=== PATIENT | female | born 1995 | race Caucasian/White ===

== ENCOUNTER 2021-07-25 07:25 | Inpatient (IN) ==
--- NOTE | 2021-07-18 17:19 | History and Physical Report ---
DATE OF ADMISSION: 07/25/2021 ADMIT DIAGNOSES: 1. at 39 and 0/7th weeks. 2. Konstantin breech presentation. HISTORY OF PRESENT ILLNESS: Colin is a 26-year-old white female, 1, para 0 who presents at 39 and 0/7 weeks today for a primary section for breech presentation. The has be en uncomplicated. She declined ECV. There was a left echogenic focus discovered on anatomy ultrasou nd and it appears she declined panorama. There have been no other complications in this . S he has had COVID vaccination. PAST GYNECOLOGIC HISTORY: This is the patient's first . GYNECOLOGIC HISTORY: Noncontributory. ALLERGIES: No known drug allergies. MEDICATIONS: vitamin. PAST MEDICAL HISTORY: As noted above. PAST SURGICAL HISTORY: ACL repair in 2017 and wisdom tooth extraction. SOCIAL HISTORY: She is to Tyron Box and lives with him. She denies tobacco, alcohol or drug us e. FAMILY HISTORY: The patient is adopted and her family history is not well known. PHYSICAL EXAMINATION: GENERAL: This is a well-developed, well-nourished white female in no acute distress. VITAL SIGNS: Blood pressure 112/20. Weight 158 pounds. NECK: Supple, without thyromegaly or lymphadenopathy. CHEST: Clear to auscultation bilaterally. CARDIOVASCULAR: Regular rate and rhythm. ABDOMEN: Gravid, soft and nontender. EXTREMITIES: Benign. LABORATORY DATA: Blood type A positive, antibody negative, rubella immune, RPR nonreactive, hepatiti s B negative, HIV negative. GTT at 16 weeks normal. Chlamydia and gonorrhea normal. She did a 2-ho ur diet for her 28 week glucose test and that was normal as well. ASSESSMENT AND PLAN: Colin is a 26-year-old white female, 1, para 0 who presents at 39 and 0/7 weeks for primary section for konstantin breech presentation. The risks of the pro cedure were discussed with the patient including the risks of anesthesia, bleeding requiring transfus ion, infection, poor wound healing, damage to surrounding structures including bowel, bladder, vessel s, nerves and ureters with need for further surgery, hospitalization or intervention, possible injury to fetus. Discussed the other risks of surgery including the risk of heart attack, blood clot, stro ke, or . Consent was reviewed and signed. Questions were asked and answered. Procedure is percy nned for 07/25. Job ID: [id number]
--- NOTE | 2021-07-21 09:42 | Anesthesiology Consultation ---
Date of Service July 21, 2021 Assessment & Plan (1) Encounter for pre-operative examination: Chart Review Chart Review: entry level buyer initiated Per nursing assessment 07/20/2021, patient denies any recent travel. No known Covid infection in the past 90 days. Patient is vaccinated for Covid. No known Covid positive contacts or Covid related symptoms. Preop Covid testing 07/21/21= will await results History Surgery Operation Date: 07/25/21 09:10 Proposed Procedures p Section(Delivery of Baby throught Abdominal Incision) - Claire Zaragoza MD, FACOG Height/Weight Height: 5 ft 3 in Weight: 71.668 kg Allergies Allergy/AdvReac Type Severity Reaction Status Date / Time cat dander Allergy Severe ITCHY/THROAT Verified 07/20/21 13:40 SWELLING dog dander Allergy Severe ITCHY/THROAT Verified 07/20/21 13:40 SWELLING LEATHER Allergy Mild SKIN RASH Uncoded 07/20/21 13:40 Medications Home Medications Medication Instructions Recorded Confirmed Last Taken prenat.vits,gilbert,rty-gvzy-eszhi 1 tab PO DAILY 12/13/20 07/20/21 05/31/21 21:00 Past Medical History Medical History Heartburn during History of chicken pox as a child Hx of breast lump BENIGN Shingles August 2020 Past Family History Family History Mother Cerebral palsy Other Past medical history not known due to adoption Past Surgical History Surgical History H/O breast biopsy BENIGN Nausea and vomiting after administration of anesthetic agent S/P ACL repair LEFT [place] teeth removed Social History Smoking Status: Never smoker Hx Alcohol Use: No Hx Substance Use: No substance use type: does not use Lab Results Anesthesia Preop Results Results Anesthesia Widget: WBC 9.63 K/uL (4.8-10.8) 06/02/21 Hgb 11.4 g/dL (12.0-16.0) L 06/02/21 Hct 33.9 % (37-47) L 06/02/21 Plt 213 K/uL (130-400) 06/02/21 Na 137 mmol/L (136-145) 06/02/21 K 3.8 mmol/L (3.5-5.1) 06/02/21 Cl 107 mmol/L (98-107) 06/02/21 CO2 23 mmol/L (21-32) 06/02/21 BUN 8 mg/dl (7-18) 06/02/21 Creat 0.43 mg/dl (0.6-1.2) L 06/02/21 Glucose Level 85 mg/dl (70-99) 06/02/21 TSH 1.180 uIu/ml (0.300-4.500) 06/02/21 Testing Electrocardiogram Date: 06/02/21 Findings: + NSR @ (78bpm) Normal EKG per cardio
[~2021-07-25 07:25] MED LIST: CITRIC ACID/SODIUM CITRATE 15 ML UDC PO SCH; LACTATED RINGER'S 1,000 ML IV SCH; ceFAZolin 2,000 MG in SYRINGE 0 ML IV SCH
[2021-07-25] MEDS ORDERED: LACTATED RINGER'S 1,000 ML IV SCH ×2 (08:45→11:00)
--- NOTE | 2021-07-25 09:00 | History & Physical Bridge Note ---
Date of Service July 25, 2021 History & Physical Bridge Note I have examined the patient, reviewed the History & Physical and in the interval since the performance of the History & Physical I have noted the following changes of clinical significance: no changes noted, breech confirmed by ultrasound.
[2021-07-25] MEDS ORDERED: ePHEDrine sulfate 50 MG/ML AMP IV PRN (09:05)
[2021-07-25] MEDS ORDERED: NALOXONE HCL 0.08 MG in SYRINGE 1.8 ML IV PRN (09:05)
[2021-07-25] MEDS ORDERED: NALOXONE HCL 1 MG in SODIUM CHLORIDE 0.9% 1000ML 1,000 ML IV PRN (09:05)
[2021-07-25] MEDS ORDERED: ONDANSETRON INJ 2 MG/ML 2 ML VIAL IV PRN (09:05)
[2021-07-25] MEDS ORDERED: diphenhydrAMINE 50 MG/ML VIAL IV PRN (09:05)
[2021-07-25] MEDS ORDERED: NALOXONE HCL 0.4 MG/1 ML VIAL/CARP IV PRN (09:05)
[2021-07-25] MEDS ORDERED: MoRPHine SULFATE 2 MG/ML CARP IV PRN (09:05)
[2021-07-25] MEDS ORDERED: NALBUPHINE HCL INJ 10 MG/ML AMP IV PRN (09:05)
[2021-07-25] MEDS ORDERED: LACTATED RINGER'S 500 ML IV PRN (09:05)
[2021-07-25] MEDS ORDERED: MoRPHine SULFATE PF 1 MG/ML 10 ML AMP/VIAL INT SPINAL ONE (09:05)
[2021-07-25] MEDS ORDERED: KETOROLAC 30 MG/ML VIAL IV PRN (09:05)
[2021-07-25] MEDS ORDERED: OXYTOCIN 10 UNITS/ML VIAL ONE (09:12)
[2021-07-25] MEDS ORDERED: MoRPHine SULFATE PF 1 MG/ML 10 ML AMP/VIAL ONE (09:12)
[2021-07-25] MEDS ORDERED: fentaNYL citrate 100 MCG/2 ML VIAL ONE (09:12)
[2021-07-25] MEDS ORDERED: DC INTRASPINAL MORPHINE SCH (09:15)
[2021-07-25] MEDS ORDERED: SODIUM CHLORIDE 0.9% 1000ML 1,000 ML IV SCH (09:15)
[2021-07-25] MEDS ORDERED: NO NARCOTICS OR SEDATIVES SCH (09:15)
[2021-07-25 09:18] LABS: Basophils # (auto) 0.03 K/uL (0-0.2); Basophils % (auto) 0.4 %; Eosinophils # (auto) 0.12 K/uL (0-0.5); Eosinophils % (auto) 1.5 %; Hematocrit (blood only) 31.2 % (37-47); Hemoglobin 10.2 g/dL (12.0-16.0); Immature Granulocytes # (auto) 0.05 K/uL (0.00-0.02); Immature Granulocytes % (auto) 0.6 %; Lymphocytes % (auto) 24.6 %; Mean Corpuscular Hemoglobin 27.4 pg (25-34); Mean Corpuscular Hgb Conc 32.7 g/dL (32-36); Mean Corpuscular Volume 83.9 fL (80-100); Mean Platelet Volume 9.3 fL (7.4-10.4); Monocytes # (auto) 0.58 K/uL (0.11-0.59); Monocytes % (auto) 7.1 %; Neutrophils # (auto) 5.36 K/uL (1.4-6.5); Neutrophils % (auto) 65.8 %; Platelet Count 230 K/uL (130-400); RDW Coefficient of Variation 12.9 % (11.5-14.5); RDW Standard Deviation 39.2 fL (36.4-46.3); Red Blood Count 3.72 M/uL (4.2-5.4); White Blood Count 8.14 K/uL (4.8-10.8)
[2021-07-25] MEDS ORDERED: ePHEDrine sulfate 50 MG/ML AMP ONE (10:13)
[2021-07-25] MEDS ORDERED: PHENYLEPHRINE 100MCG/ML 5ML SYR ONE (10:13)
[2021-07-25] MEDS ORDERED: ONDANSETRON INJ 2 MG/ML 2 ML VIAL ONE (10:13)
[2021-07-25] MEDS ORDERED: BENZOCAINE 20% AER SPR 82.5 GM CAN EXT PRN (10:52)
[2021-07-25] MEDS ORDERED: SENNA 8.6 MG TAB PO PRN (10:52)
[2021-07-25] MEDS ORDERED: DIPHTHERIA/TETANUS/PERTUSSIS 0.5 ML SYR/VIAL IM ONE (10:52)
[2021-07-25] MEDS ORDERED: MAGNESIUM HYDROXIDE SUSP 30 ML UDC PO PRN (10:52)
[2021-07-25] MEDS ORDERED: SUPERCREAM 0.870% 15 GM JAR EXT PRN (10:52)
[2021-07-25] MEDS ORDERED: HYDROCORTISONE ACETATE 25 MG SUPP PR PRN (10:52)
--- NOTE | 2021-07-25 10:52 | Operative Report ---
PG Post Operative Report Pre & Post Diagnosis Operation Date: 07/25/21 09:10 Pre-Op Diagnosis: at 39 Weeks;Breech Post-Op Diagnosis: Same;Delivery of a live male child at 1021 ( Main OR 3) I identified the patient and participated in the time-out.: Yes Procedure Operation Date: 07/25/21 09:10 Actual Procedures p primary lower transverse Section(Delivery of Baby throught Abdominal Incision) - Claire Zaragoza MD, FACOG Surgeon Claire Zaragoza MD, FACOG Last Cleaner Chalino Reeves RN, Irene Matamoros, MS2 Estimated Blood Loss 600 Findings Consistent with Post-Op Diagnosis viable male , rsa presentation, nl utx, tubes, ovs bilaterally Fluids 1000 Specimens none Drains lopez Anesthesia Type Spinal Complications none Disposition Accompanied Patient To Recovery: Yes Disposition: L&D Indications [id number] with iup at 39 weeks with breech presentation Description of Procedure The patient was taken to the operating room where she was identified verbally and by bracelet. She was seated on the operating table where a spinal anesthetic was placed by anesthesia. She was then placed in the supine position with a leftward tilt. A Lopez catheter was placed sterilely. the patient was prepped and draped in a normal standard fashion. the anesthetic was tested and found to be adequate. A time-out was held, identifying correct patient, procedure, positioning and preoperative antibiotics. There were no concerns. A Pfannenstiel skin incision was made with a knife and taken down to the underlying layer of fascia with the knife and Bovie electrocautery. Bleeding was attended to with the Bovie. The fascia was incised in the midline with the knife and taken out laterally with scissors. The superior edge of the fascial incision was grasped, elevated and the underlying layer of rectus muscle was taken off bluntly and with scissors. In a similar fashion, the inferior edge of the fascial incision was grasped, elevated and the underlying layer of rectus muscle was taken off bluntly and with scissors. The muscles were bluntly in the midline. The peritoneum was entered bluntly. The incision was then stretched. The bladder blade was placed. The vesicouterine peritoneum was identified, entered with scissors and taken out laterally with scissors. The bladder flap was created digitally A hysterotomy incision was scored with a knife and the incision was stretched superiorly and inferiorly with the tag meter operator's fingers. The operators hand was placed into the incision and the buttocks was delivered atraumatically. Nuchal cord x 1. the rest of the was delivered easily, including the head, with fundal pressure. The nose and mouth were again bulb suctioned. The cord was clamped and cut and the was then handed off to the awaiting headline writer for drying and attenti on. Cord blood and segment were obtained. The placenta was Manually extracted. The uterus was exteriorized and cleared of all clot and debris with moistened laparotomy sponges. The hysterotomy incision was repaired in two layers, the first in a running locked layer, the second in an imbricating layer. Hemostasis was noted to be good. Posterior cul-de-sac was irrigated and cleared of all clot and debris. The hysterotomy incision was again inspected and found to be hemostatic. the uterus was reinteriorized. Hysterotomy incision was again inspected and found to be hemostatic. Rectus mu scles were reapproximated with several interrupted stitches of 0 Vicryl. The fascia was then reapproximated with 0 Vicryl starting at the edges and meeting in the midline. The subcuticular tissues were copiously irrigated and bleeding was attended to with cautery. The skin was then closed with 4-0 Vicryl in a subcuticular fashion. All sponge, lap and needle counts correct x 2. Patient taken to the recovery room in stable condition. I attest to the content of the Intraoperative Record and any orders documented therein. Any exceptions are noted below. OB Procedure Charges 41720
[2021-07-25] MEDS: OXYTOCIN 20 UNITS in LACTATED RINGER'S 1,000 ML IV SCH ×2 (12:43→20:33)
[2021-07-25] MEDS: DOCUSATE SODIUM 100 MG CAP PO SCH (21:00)
[2021-07-25] MEDS: SIMETHICONE 80 MG CHEW PO SCH (21:00)
[2021-07-26] MEDS ORDERED: KETOROLAC 30 MG/ML VIAL IV PRN (03:06)
[2021-07-26] MEDS ORDERED: diphenhydrAMINE Capsule 25 MG CAP PO PRN (03:06)
[2021-07-26] MEDS ORDERED: diphenhydrAMINE 50 MG/ML VIAL IV PRN (03:06)
[2021-07-26] MEDS ORDERED: PROMETHAZINE HCL 25 MG in SODIUM CHLORIDE 0.9% 50 ML IV PRN (03:06)
[2021-07-26] MEDS ORDERED: MEPERIDINE HCL 50 MG/ML CARP IV PRN (03:06)
[2021-07-26] MEDS ORDERED: ONDANSETRON INJ 2 MG/ML 2 ML VIAL IV PRN (03:06)
[2021-07-26] MEDS ORDERED: ceFAZolin 2000MG 2,000 MG/15 ML SYR IV SCH (06:00)
[2021-07-26 06:20] LABS: Basophils # (auto) 0.01 K/uL (0-0.2); Basophils % (auto) 0.1 %; Eosinophils # (auto) 0.09 K/uL (0-0.5); Eosinophils % (auto) 0.8 %; Hemoglobin 9.5 g/dL (12.0-16.0); Immature Granulocytes # (auto) 0.04 K/uL (0.00-0.02); Immature Granulocytes % (auto) 0.3 %; Lymphocytes % (auto) 11.2 %; Mean Corpuscular Hgb Conc 33.9 g/dL (32-36); Mean Corpuscular Volume 82.6 fL (80-100); Mean Platelet Volume 8.8 fL (7.4-10.4); Monocytes # (auto) 0.54 K/uL (0.11-0.59); Monocytes % (auto) 4.7 %; Neutrophils # (auto) 9.61 K/uL (1.4-6.5); Neutrophils % (auto) 82.9 %; Platelet Count 195 K/uL (130-400); RDW Coefficient of Variation 13.1 % (11.5-14.5); RDW Standard Deviation 39.7 fL (36.4-46.3); Red Blood Count 3.39 M/uL (4.2-5.4); White Blood Count 11.59 K/uL (4.8-10.8)
--- NOTE | 2021-07-26 07:48 | Obstetrical Progress Note ---
Date of Service <Nikolai Leslie MD - Last Filed: 07/26/21 08:32> July 26, 2021 Assessment & Plan <Nikolai Leslie MD - Last Filed: 07/26/21 08:32> (1) Encounter for care and examination after delivery: POD1: routine postop care -ambulating and voiding without difficulty -pain well-managed on analgesia -advance diet to solid foods at breakfast -IV iron sucrose 400 mg (for hgb of 9.5, down from 10.2 yesterday) -anticipate d/c today in the afternoon today or tomorrow morning -OB outpt f/u in 6 wks <Gilles Marucs MD - Last Filed: 07/26/21 12:28> (1) Encounter for care and examination after delivery: POD1: routine postop care -ambulating and voiding without difficulty -pain well-managed on analgesia -advance diet to solid foods at breakfast - Iron tab daily (for hgb of 9.5, down from 10.2 yesterday) -anticipate d/c today in the afternoon today or tomorrow morning -OB outpt f/u in 6 wks Subjective <Nikolai Leslie MD - Last Filed: 07/26/21 08:32> Colin is a 26 y/o female who is POD #1 following for breech presentation at 39 WGA. She reports feeling well overall this morning. Some abdominal cramping well managed on analgesics. Voiding +. Tolerating soft foods overnight and ambulating without difficulty. Is passing gas but has not had a bowel movement. Currently . Review of Systems Denies fever, chills, sweats Denies shortness of breath, difficulty breathing, chest pain, palpitations, chest pressure. Denies breast pain. Denies dysuria. Denies headache or changes in vision. Physical Exam <Nikolai Leslie MD - Last Filed: 07/26/21 08:32> General: Alert, oriented. No acute distress. Cardiac: Regular rate and rhythm, no murmurs/rubs/gallops. Respiratory: Clear to auscultation bilaterally a/p, no wheezes/rales/rhonchi. No increased work of breathing. Symmetrical chest rise. No respiratory distress. Abdomen: Soft, nontender, nondistended. Bowel sounds present. Uterus: Uterine fundus firm, palpable at the umbilicus. Surgical scar clean and healing well. Lower Extremities: No lower extremity edema or swelling. No deep calf pain. Juliann's negative bilaterally. Results & Data ([facility]) <Nikolai Leslie MD - Last Filed: 07/26/21 08:32> Vital Signs (Past 12 Hours) Vital Signs Temp Pulse Resp BP Pulse Ox 07/26/21 03:51 36.5 C 88 18 91/50 L 98 07/26/21 03:06 18 94 07/26/21 02:30 18 94 07/26/21 01:30 18 97 07/26/21 00:27 18 96 07/25/21 23:23 18 97 07/25/21 23:21 36.9 C 90 18 98/64 L 97 07/25/21 22:22 18 98 07/25/21 21:15 18 99 07/25/21 20:10 37.0 C 90 18 103/69 100 <Gilles Marcus MD - Last Filed: 07/26/21 12:28> Co-Signing Physician Notes Patient seen and evaluated and agree with the above findings and plan. Routine OB care. Resident Activity Tracking <Nikolai Leslie MD - Last Filed: 07/26/21 08:32> Resident Involvement: Resident Care Provided Care Provided: OB Delivery
[2021-07-26] MEDS: PRENATAL VITAMIN 1 TAB PO SCH (08:01)
[2021-07-26] MEDS: DOCUSATE SODIUM 100 MG CAP PO SCH ×2 (08:01→20:33)
[2021-07-26] MEDS: SIMETHICONE 80 MG CHEW PO SCH ×4 (08:02→20:33)
[2021-07-26] MEDS: FERROUS SULFATE 325 MG TAB PO SCH (08:02)
[2021-07-26] MEDS ORDERED: IRON SUCROSE 400 MG in SODIUM CHLORIDE 0.9% 250 ML IV ONE (09:30)
[2021-07-26] MEDS: oxyCODONE/ACETAMINOPHEN 5mg/325mg TAB PO PRN ×2 (15:57→20:35)
[2021-07-26] MEDS: IBUPROFEN 600 MG TAB PO PRN ×2 (15:58→20:35)
[2021-07-26] MEDS ORDERED: bisacodyL 5 MG TABEC PO SCH (20:00)
[2021-07-27] MEDS: oxyCODONE/ACETAMINOPHEN 5mg/325mg TAB PO PRN ×2 (03:30→10:53)
[2021-07-27] MEDS: IBUPROFEN 600 MG TAB PO PRN ×2 (03:31→10:54)
[2021-07-27 06:18] LABS: Hematocrit (blood only) 26.2 % (37-47); Hemoglobin 8.6 g/dL (12.0-16.0)
--- NOTE | 2021-07-27 06:36 | Obstetrical Progress Note ---
Date of Service <Nikolai Leslie MD - Last Filed: 07/27/21 07:24> July 27, 2021 Assessment & Plan <Nikolai Leslie MD - Last Filed: 07/27/21 07:24> (1) Encounter for care and examination after delivery: POD2: routine postop care -ambulating and voiding without difficulty -pain continues to be well-managed on analgesia -tolerating regular diet -anticipate d/c today -send home on short-term Percocet prescription -OB outpt f/u in 6 wks <Silvia Frye MD, FACOG - Last Filed: 07/27/21 07:27> (1) Encounter for care and examination after delivery: Subjective <Nikolai Leslie MD - Last Filed: 07/27/21 07:24> Post Colin is a 26 y/o female who is POD 2 following for breech presentation at 39 WGA. She reports feeling well overall this morning. + abdominal cramping & 2/10 pain well managed on analgesics. Voiding +. Tolerating meals and ambulating without difficulty. + passing gas but no bowel movement. Has some lochia with improvement this morning. Currently . Review of Systems Denies fever, chills, sweats Denies shortness of breath, difficulty breathing, chest pain, palpitations, chest pressure. Denies breast pain. Denies dysuria. Denies headache or changes in vision. Physical Exam <Nikolai Leslie MD - Last Filed: 07/27/21 07:24> General: Alert, oriented. No acute distress. Cardiac: Regular rate and rhythm, no murmurs/rubs/gallops. Respiratory: Clear to auscultation bilaterally a/p, no wheezes/rales/rhonchi. No increased work of breathing. Symmetrical chest rise. No respiratory distress. Abdomen: Soft, nontender, nondistended. Bowel sounds present. Uterus: Uterine fundus firm, palpable at the umbilicus. Surgical scar clean and healing well. Lower Extremities: No lower extremity edema or swelling. No deep calf pain. Juliann's negative bilaterally. Results & Data ([facility]) <Nikolai Leslie MD - Last Filed: 10/13/21 07:24> Vital Signs (Past 12 Hours) Vital Signs Temp Pulse Resp BP BP Pulse Ox 07/26/21 23:30 36.6 C 77 16 108/72 99 07/26/21 20:20 36.7 C 88 16 108/69 98 <Silvia Frye MD, FACOG - Last Filed: 07/27/21 07:27> Co-Signing Physician Notes Resident Physician Supervision Note: I was present with Dr. Leslie during the history and exam. I discussed the case with the resident and agree with the findings and plan as documented in the note. Any exceptions or clarifications are listed here: pt doing well, breast feeding, voiding, ambulating without problem, using pain meds and pain well controlled. hgb this am pending. abd soft ff at u, nt, incision c/d/i with steris. ext nt calves. desires d/c home, pod #2, instructions reviewed, f/u 6 wk pp check, breast, rh pos, ri. answered many ?. checked on papdmp and no issues. Documented By: Silvia Frye MD, FACOG Resident Activity Tracking <Nikolai Leslie MD - Last Filed: 07/27/21 07:24> Resident Involvement: Resident Care Provided Care Provided: OB Delivery
--- NOTE | 2021-07-27 06:37 | Anesthesiology Progress Note ---
Date of Service July 27, 2021 Anesthesia Post Procedure Vital Signs Vital Signs: Temp Pulse Resp BP BP Pulse Ox 07/26/21 23:30 36.6 C 77 16 108/72 99 07/26/21 20:20 36.7 C 88 16 108/69 98 07/26/21 16:00 36.7 C 91 H 18 108/73 07/26/21 08:00 36.4 C L 68 18 101/68 Pain Intensity Abdomen: Pain Intensity: 3 Transfer of Care Handoff Completed per policy Notes Mental Status: alert / awake / arousable and participated in evaluation Patient Amnestic to Procedure: Yes Nausea / Vomiting: adequately controlled Pain: adequately controlled Airway Patency, RR, SpO2: stable & adequate BP & HR: stable & adequate Hydration State: stable & adequate Anesthetic Complications: no major complications apparent and Pt Satisfied with anesthetic care
[2021-07-27] MEDS: PRENATAL VITAMIN 1 TAB PO SCH (09:00)
[2021-07-27] MEDS: FERROUS SULFATE 325 MG TAB PO SCH (09:00)
[2021-07-27] MEDS: DOCUSATE SODIUM 100 MG CAP PO SCH (09:00)
[2021-07-27] MEDS: SIMETHICONE 80 MG CHEW PO SCH (09:04)
[2021-07-27] MEDS ORDERED: bisacodyL 10 MG SUPP PR PRN (10:52)
--- NOTE | 2021-07-28 22:31 | Discharge Summary (DS) ---
DATE OF ADMISSION: 07/25/2021. DATE OF DISCHARGE: 07/27/2021. ADMITTING DIAGNOSES: 1. Intrauterine at 39 and 0/7th weeks. 2. Michael breech presentation. DISCHARGE DIAGNOSES: 1. Intrauterine at 39 and 0/7th weeks. 2. Michael breech presentation. PROCEDURE: Primary low transverse section. HISTORY OF PRESENT ILLNESS: The patient is a 26-year-old white female, 1, para 0, who presen ts at 39 and 0/7th weeks for primary section for breech presentation. The has bee n uncomplicated. She declined ECV. There was a left echogenic focus discovered on anatomy ultrasoun d and it appears she declined panorama. There have been no other complications in this and she has had COVID vaccination. For the rest of the patient's detailed history and physical, please s ee her history and physical. ASSESSMENT: The patient is a 26-year-old white female, 1, para 0, who presents at 39 and 0/7th weeks for primary section for michael breech presentation. HOSPITAL COURSE: The patient was admitted and underwent a primary low transverse section wi thout difficulty. Estimated blood loss 600 mL. She delivered a viable male infant in right sacrum ant erior presentation. Normal uterus, tubes and ovaries were noted bilaterally. The patient's postoper ative course was uncomplicated. She tolerated a regular diet, ambulated without difficulty, voided a fter the removal of Lugo catheter and had her pain well controlled on oral pain medication. She was sent home on postoperative day #2 to follow up in 6 weeks for routine postoperative evaluation. Dis charge H and H was 8.6 and 26.2. Job ID: [id number]
== END 2021-07-27 14:45 | disposition home or self-care (01) | DRG 788 ==
LOC: 4S1 07:25 → EDSTATUS 09:10 → 4S2 13:15